=== PATIENT | male | born 1965 | race Caucasian/White ===

== ENCOUNTER → 2017-07-03 15:06 | Outpatient (CLI) | payer BC ==
[2013-06-02 23:20] VITALS: BMI 33.2
== END | disposition home or self-care (01) ==
LOC: D.MRI 15:06
DX: M17.9 Osteoarthritis of knee, unspecified (principal)

== ENCOUNTER → 2018-06-03 13:35 | Outpatient (CLI) | payer BC ==
[2013-06-02 23:20] VITALS: BMI 33.2
== END | disposition home or self-care (01) ==
LOC: D.RAD 13:35
DX: R06.02 Shortness of breath (principal)